=== PATIENT | male | born 1985 ===

== ENCOUNTER → 2018-09-27 21:42 | Outpatient (REF) | payer BC, SELFPAY ==
[2018-09-27 21:56] LABS: Add Manual Diff / Slide Review NO; Basophils Percent Auto 0.6 % (0-2); Eosinophils Percent Auto 1.4 % (2-4); Hematocrit 40.9 % (41-53); Lymphocytes Percent Auto 31.5 % (25-40); Mean Corpuscular HGB Conc 34.2 % (30-36); Mean Corpuscular Hemoglobin 32.3 PG (26-34); Mean Corpuscular Volume 94.5 fL (80-100); Monocytes Percent Auto 6.4 % (3-14); Neutrophils Absolute Auto 3000 /uL (3000-5900); Neutrophils Percent Auto 60.1 % (50-75); Platelet Count 257 X10^3/uL (150-400); Red Blood Cell Count 4.33 X10^6/uL (4.5-5.9); Red Cell Distribution Width 12.7 % (11.6-14.8)
[2018-09-27 22:01] LABS: Alanine Aminotransferase 27 IU/L (21-72); Albumin 4.5 g/dL (3.5-5.0); Albumin Globulin Ratio 1.5 (1.0-2.8); Alkaline Phosphatase 51 U/L (38-126); Aspartate Aminotransferase 35 IU/L (17-59); Bilirubin Total 0.3 mg/dL (0.2-1.3); Blood Urea Nitrogen 36 mg/dL (9-20); Calcium 9.2 mg/dL (8.4-10.2); Carbon Dioxide 30 mmol/L (22-32); Chloride 98 mmol/L (98-107); Cholesterol 150 mg/dL (140-199); Estimated Glomerular Filt Rate > 60.0 mL/min (>60); Glucose 95 mg/dL (70-100); HDL Cholesterol 51 mg/dL (40-60); HEMOLYSIS < 15 (0-50); LDL Cholesterol Calculated 82 mg/dL (<100); Potassium 4.4 mmol/L (3.4-5.1); Sodium 141 mmol/L (137-145); Total Protein 7.5 g/dL (6.3-8.2); Triglycerides 85 mg/dL (35-150)
[2018-09-27 22:32] LABS: Thyroid Stimulating Hormone 1.91 uIU/mL (0.47-4.68)
[2018-09-27 22:47] LABS: HIV 1 and 2 Antibody NEGATIVE (NEGATIVE)
[2018-09-30 15:28] LABS: Albumin 4.6 g/dL (3.6-5.1); Sex Hormone Binding Globulin 35 nmol/L (10-50); Testosterone, Bioavailable 93.4 ng/dL (110.0-575.0); Testosterone, Total 363 ng/dL (250-1100); Testosterone,Free 44.5 pg/mL (46.0-224.0)
[2018-10-03 14:56] LABS: Free T4, Direct Thyroxine 1.48 ng/dL (0.78-2.19)
== END ==
LOC: LAB 21:42
PROVIDERS: Visit Provider Family Medicine
DX: E03.9 Hypothyroidism, unspecified (principal); R68.82 Decreased libido; R53.83 Other fatigue; Z11.4 Encounter for screening for human immunodeficiency virus [HIV]; Z11.3 Encounter for screening for infections with a predominantly sexual mode of transmission
CPT/HCPCS: 36415; 80053; 80061; 82040; 83036; 84270; 84403; 84439; 84443; 85025; 86703; 86780

== ENCOUNTER → 2018-12-24 21:16 | Outpatient (REF) | payer BC, SELFPAY ==
[2018-12-28 14:54] LABS: Estrogen 72.9 pg/mL (60-190)
== END ==
LOC: LAB 21:16
PROVIDERS: Visit Provider Family Medicine
DX: R53.83 Other fatigue (principal); E03.9 Hypothyroidism, unspecified
CPT/HCPCS: 36415; 82627; 82672; 84481